=== PATIENT | male | born 1995 | race Caucasian/White ===

== ENCOUNTER 2017-02-05 18:12 | Emergency (ER) | payer BC ==
[2017-02-05 19:07] VITALS: BP 121/74
--- NOTE | 2017-02-05 19:13 | UC ---
Hand/Wrist HPI - HPI Summary HPI Summary: Crush injury to right index finger today with a sledge hammer-- - History Of Current Complaint Chief Complaint: UCUpperExtremity Stated Complaint: FINGER INJURY Time Seen by Provider: 02/05/17 19:12 Hx Obtained From: Patient ?: No Mechanism Of Injury: crushed with a hammer Onset/Duration: Sudden Onset, Lasting Hours - 7 hours ago, Still Present Severity Initially: Moderate Severity Currently: Moderate Pain Intensity: 8 Pain Scale Used: 0-10 Numeric Character Of Pain: Aching, Throbbing Aggravating Factor(s): Movement Alleviating: Ice, Elevation Associated Signs And Symptoms: Positive: Redness, Bruising Related History: Dominant Hand Right - Allergies/Home Medications Allergies/Adverse Reactions: Allergies Allergy/AdvReac Type Severity Reaction Status Date / Time Sulfa Drugs Allergy Unknown Verified 07/23/13 22:44 Reaction Details Home Medications: Home Medications Lactose Supplement 1 tab PO DAILY 02/05/17 [History Confirmed 02/05/17] PMH/Surg Hx/FS Hx/Imm Hx Previously Healthy: Yes Endocrine History Of: Denies: Diabetes, Thyroid Disease Cardiovascular History Of: Denies: Cardiac Disorders, Hypertension Respiratory History Of: Denies: COPD, Asthma GI/ History Of: Denies: Ulcer - Surgical History Surgical History: None - Family History Known Family History: Positive: None Family History: no reported cardiovascular issues in family lineage - Social History Occupation: Employed Full-time Lives: With Family Alcohol Use: Rare Substance Use Type: None Smoking Status (MU): Never Smoked Tobacco Review of Systems Constitutional: Negative Skin: Negative, Bruising - right index finger Eyes: Negative ENT: Negative Respiratory: Negative Cardiovascular: Negative Gastrointestinal: Negative Genitourinary: Negative Motor: Negative Neurovascular: Negative Musculoskeletal: Negative, Myalgia - distal right index finger Neurological: Negative Psychological: Negative All Other Systems Reviewed And Are Negative: Yes Physical Exam Triage Information Reviewed: Yes Appearance: Well-Appearing, Well-Nourished, Pain Distress - mild Vital Signs: Initial Vital Signs Temp 98.8 F 02/05/17 19:02 Pulse 79 02/05/17 19:02 Resp 18 02/05/17 19:02 BP 121/74 02/05/17 19:02 Pulse Ox 100 02/05/17 19:02 Vital Signs Reviewed: Yes Eye Exam: Normal Eyes: Positive: Conjunctiva Clear ENT Exam: Normal ENT: Positive: Normal ENT inspection, Hearing grossly normal. Negative: Nasal congestion, Nasal drainage, Trismus, Muffled/hoarse voice Dental Exam: Normal Neck exam: Normal Neck: Positive: Supple, Nontender, No Lymphadenopathy Respiratory Exam: Normal Respiratory: Positive: Chest non-tender, Lungs clear, Normal breath sounds, No respiratory distress, No accessory muscle use Cardiovascular Exam: Normal Cardiovascular: Positive: RRR, No Murmur, Pulses Normal, Brisk Capillary Refill Musculoskeletal Exam: Normal Musculoskeletal: Positive: Strength Intact, ROM Intact, Edema @ - right distal second finger Neurological Exam: Normal Neurological: Positive: Alert, Muscle Tone Normal Psychological Exam: Normal Skin Exam: Normal Diagnostics - Laboratory Diagnostic Studies Completed/Ordered: right index finger tuft fracture Hand/Wrist Course/Dx - Course Course Of Treatment: rice, splint, pain cortrol, follow with ortho - Differential Dx/Diagnosis Differential Diagnosis/HQI/PQRI: Contusion, Fracture, Sprain, Strain Provider Diagnoses: Right distal 2 nd finger tuft fracture Discharge - Discharge Plan Condition: Stable Disposition: HOME Prescriptions: Hydrocodone-Acetaminophen [Hydrocodone/Acetaminophen 5-325 mg] 1 tab PO Q6H PRN #10 tab MDD 4 PRN Reason: pain Ibuprofen TAB* [Motrin TAB* 800 MG] 800 mg PO Q8H PRN #30 tab PRN Reason: pain Patient Education Materials: Finger Fracture (ED), RICE Therapy (ED), Crush Injury (ED) Referrals: Uday Rivera MD [Medical Doctor] - Sukhjinder Lowery MD [Medical Doctor] - 4 Days
--- NOTE | 2017-02-05 19:38 | RAD ---
INDICATION: Trauma right second digit COMPARISON: None TECHNIQUE: AP, lateral, and oblique views were obtained. FINDINGS: There is a tuft fracture with mild comminution and minor distraction of 2 dominant fragments. There are no other fractures. There is soft tissue swelling. IMPRESSION: TUFT FRACTURE.
== END 2017-02-05 19:56 | disposition home or self-care (01) ==
LOC: UCEAST 18:12
DX: S62.640A Nondisplaced fracture of proximal phalanx of right index finger, initial encounter for closed fracture (principal); W22.8XXA Striking against or struck by other objects, initial encounter; Y93.89 Activity, other specified; Y92.9 Unspecified place or not applicable; Z88.2 Allergy status to sulfonamides
CPT/HCPCS: 73140; 99202; G0463